=== PATIENT | male | born 1980 | race African-American/Black ===

== ENCOUNTER 2018-07-21 09:09 | Emergency (ER) | payer MEDICAID ==
[~2018-07-21] VITALS: Ht 188 cm; Wt 79.0 kg
[~2018-07-21 09:09] MED LIST: ACET-2178
[2018-07-21 09:21] VITALS: BP 102/74
== END 2018-07-21 11:20 | disposition left against medical advice (07) ==
LOC: ER 09:09
DX: Z48.02 Encounter for removal of sutures (principal); F17.200 Nicotine dependence, unspecified, uncomplicated
CPT/HCPCS: 99281; Z7610

== ENCOUNTER 2018-10-28 11:35 | Inpatient (IN) | payer MEDICAID ==
[~2018-10-28] VITALS: Ht 188 cm; Wt 96.0 kg
[2018-10-28] MEDS ORDERED: MORPHINE SULFATE 4 MG/ML CPJ (NOT FOR IM USE) IV STA (12:05)
[2018-10-28 12:30] LABS: BASOPHILS % 0.3 % (0.0-2.0); EOSINOPHILS % 0.1 % (0.0-5.0); HEMATOCRIT. 45.3 % (42.0-52.0); HEMOGLOBIN. 15.1 g/dL (14.0-18.0); LYMPHOCYTES % 17.1 % (20.0-50.0); MEAN CORPUSCULAR HEMOGLOBIN 34.4 pg (28.0-32.0); MEAN CORPUSCULAR VOLUME 102.9 fL (80.0-94.0); MEAN PLATELET VOLUME 11.5 fl (7.4-10.4); MONOCYTES % 8.6 % (2.0-8.0); NEUTROPHILS % 73.9 % (40.0-76.0); PLATELET 182 x1000/uL (130-400); RED CELL DISTRIBUTION WIDTH 13.6 % (11.6-14.6)
[2018-10-28 12:34] LABS: CHLORIDE 108 mEq/L (98-107)
[2018-10-28] MEDS ORDERED: ENOXAPARIN 80MG/0.8ML SYR SUBCUT ONE (13:00)
[2018-10-28] MEDS ORDERED: ASPIRIN 325MG EC TABLET PO ONE (13:00)
[2018-10-28] MEDS ORDERED: HYDRALAZINE 20MG/ML VIAL IV ONE (13:00)
[2018-10-28] MEDS ORDERED: ENOXAPARIN 80MG/0.8ML SYR SUBCUT SCH (13:00)
[2018-10-28] MEDS ORDERED: HYDRALAZINE 20MG/ML VIAL IV PRN ×2 (14:15→16:15)
[2018-10-28] MEDS ORDERED: CLONIDINE 0.1MG TABLET PO PRN (14:15)
[2018-10-28 15:16] LABS: INR 1.2; PROTHROMBIN TIME 11.7 sec (9.1-11.1)
[2018-10-28] MEDS ORDERED: SODIUM CHLORIDE 0.9% 1,000 ML IV SCH (15:31)
[2018-10-28 15:41] LABS: *AMPHETAMINES SCREEN URINE NEGATIVE (NEGATIVE); *BARBITURATES SCREEN URINE NEGATIVE (NEGATIVE); *BENZODIAZEPINES SCREEN URINE NEGATIVE (NEGATIVE); *COCAINE SCREEN URINE NEGATIVE (NEGATIVE); METHADONE URINE SCREEN NEGATIVE (NEGATIVE)
[2018-10-28 15:42] LABS: CANNABINOID URINE SCREEN PRESUMTIVE POSITIVE (NEGATIVE); OPIATES URINE SCREEN PRESUMTIVE POSITIVE (NEGATIVE); PHENCYCLIDINE URINE SCREEN NEGATIVE (NEGATIVE)
[2018-10-28 15:43] VITALS: BP 160/126
[2018-10-28 15:44] VITALS: BP 160/126
[2018-10-28] MEDS ORDERED: ONDANSETRON HCL 4MG/2ML INJ IV PRN (15:45)
[2018-10-28] MEDS ORDERED: IPRATROPIUM/ALBUTEROL 0.5-3(2.5)MG/3ML NEB INH PRN (15:45)
[2018-10-28] MEDS ORDERED: MAGNESIUM/ALUMINUM HYDROXIDE/SIMETHICONE 30ML UDC PO PRN (15:45)
[2018-10-28] MEDS ORDERED: HYDROCODONE/ACETAMINOPHEN 5/325MG TABLET PO PRN (15:45)
[2018-10-28 17:02] LABS: VITAMIN B12 SERUM 1410 pg/mL (211-911)
[2018-10-28 17:04] LABS: HEPATITIS B SURFACE ANTIGEN NEGATIVE
[2018-10-28] MEDS ORDERED: MORPHINE SULFATE 2 MG/ML CPJ (NOT FOR IM USE) IV PRN (17:30)
[2018-10-28] MEDS ORDERED: CLONIDINE 0.1MG TABLET PO NR (17:30)
[2018-10-28] MEDS ORDERED: MORPHINE SULFATE 4 MG/ML CPJ (NOT FOR IM USE) IV NR (17:30)
[2018-10-28 17:34] LABS: HEPATITIS A AB IGM NEGATIVE (NEGATIVE)
[2018-10-28] MEDS: AMLODIPINE 5MG TABLET PO SCH (17:49)
[2018-10-28] MEDS: NITROGLYCERIN OINT 1GM/INCH UDPKT TD SCH (17:50)
[2018-10-28 18:00] VITALS: BP 164/133
[2018-10-28] MEDS ORDERED: HYDROMORPHONE HCL/PF 2MG/ML CPJ IV PRN (18:00)
[2018-10-28 20:00] VITALS: BP 156/123
[2018-10-28 22:00] VITALS: BP 156/96
[2018-10-28] MEDS ORDERED: LORAZEPAM 0.5MG TABLET PO NR (22:00)
[2018-10-29] VITALS (17 sets, daily range): BP systolic 130–161; BP diastolic 76–122
[2018-10-29] MEDS: NITROGLYCERIN OINT 1GM/INCH UDPKT TD SCH ×5 (01:25→18:07)
[2018-10-29] MEDS: ACETAMINOPHEN 325MG TABLET PO PRN (01:25)
[2018-10-29 07:47] LABS: BASOPHILS % 0.5 % (0.0-2.0); EOSINOPHILS % 0.3 % (0.0-5.0); HEMATOCRIT. 39.9 % (42.0-52.0); HEMOGLOBIN. 13.1 g/dL (14.0-18.0); MEAN CORPUSCULAR HEMOGLOBIN 33.7 pg (28.0-32.0); MEAN CORPUSCULAR VOLUME 102.9 fL (80.0-94.0); MONOCYTES % 12.1 % (2.0-8.0); NEUTROPHILS % 60.1 % (40.0-76.0); PLATELET 158 x1000/uL (130-400); RED BLOOD CELL COUNT 3.88 mill/uL (4.7-6.1); RED CELL DISTRIBUTION WIDTH 13.8 % (11.6-14.6)
[2018-10-29 07:49] LABS: CHLORIDE 107 mEq/L (98-107)
[2018-10-29 08:06] LABS: LDL CHOLESTEROL 82 mg/dL (5-100)
[2018-10-29 08:08] LABS: CREATINE KINASE 672 IU/L (39-308); CREATINE KINASE MB FRACTION 71.5 ng/mL (0.5-3.6); HDL CHOLESTEROL 24 mg/dL (40-59)
[2018-10-29] MEDS: THIAMINE HCL 100MG TABLET PO SCH (09:00)
[2018-10-29] MEDS: ASPIRIN 325MG EC TABLET PO SCH (09:00)
[2018-10-29] MEDS: FOLIC ACID 1MG TABLET PO SCH (09:00)
[2018-10-29] MEDS: AMLODIPINE 5MG TABLET PO SCH ×2 (09:00→16:52)
[2018-10-29] MEDS: MULTIVITAMINS,THER W-MINERALS TABLET PO SCH (09:00)
[2018-10-29] MEDS ORDERED: IOHEXOL-300 100 ML BOTTLE ONE (10:52)
[2018-10-29] MEDS ORDERED: LIDOCAINE HCL 1% 20ML VIAL (Pyxis) INJ ONE (10:53)
[2018-10-29] MEDS ORDERED: MIDAZOLAM HCL 2 MG/2 ML VIAL ONE (11:06)
[2018-10-29] MEDS ORDERED: FENTANYL CITRATE/PF 50MCG/ML 2ML VIAL ONE (11:06)
[2018-10-29] MEDS ORDERED: METOPROLOL TARTRATE 5MG/5ML VIAL IV ONE (11:20)
[2018-10-29] MEDS ORDERED: ACETAMINOPHEN 325MG TABLET PO PRN (11:45)
[2018-10-29] MEDS ORDERED: ATROPINE SULFATE 1MG/10ML SYR IV PRN (11:45)
[2018-10-29] MEDS: CLOPIDOGREL 75MG TABLET PO SCH (13:23)
[2018-10-29] MEDS: POTASSIUM CHLORIDE 20MEQ TABLET SR PO SCH (13:23)
[2018-10-29] MEDS: FUROSEMIDE 40MG/4ML VIAL IVP SCH (16:51)
[2018-10-29] MEDS: CARVEDILOL 12.5MG TABLET PO SCH (20:24)
[2018-10-29] MEDS: LISINOPRIL 20MG TABLET PO SCH (20:24)
[2018-10-29] MEDS: CLONIDINE 0.1MG TABLET PO PRN (20:29)
[2018-10-30] VITALS (8 sets, daily range): BP systolic 119–148; BP diastolic 79–109
[2018-10-30] MEDS: CLONIDINE 0.1MG TABLET PO PRN (05:25)
[2018-10-30] MEDS: NITROGLYCERIN OINT 1GM/INCH UDPKT TD SCH ×4 (05:29→12:12)
[2018-10-30] MEDS: ACETAMINOPHEN 325MG TABLET PO PRN (05:53)
[2018-10-30 07:26] LABS: CHLORIDE 108 mEq/L (98-107)
[2018-10-30 07:31] LABS: BASOPHILS % 0.4 % (0.0-2.0); EOSINOPHILS % 0.2 % (0.0-5.0); HEMATOCRIT. 39.6 % (42.0-52.0); HEMOGLOBIN. 13.5 g/dL (14.0-18.0); LYMPHOCYTES % 25.3 % (20.0-50.0); MEAN CORPUSCULAR HEMOGLOBIN 34.8 pg (28.0-32.0); MEAN CORPUSCULAR VOLUME 102.2 fL (80.0-94.0); MEAN PLATELET VOLUME 12.1 fl (7.4-10.4); MONOCYTES % 10.8 % (2.0-8.0); NEUTROPHILS % 63.3 % (40.0-76.0); PLATELET 154 x1000/uL (130-400); RED BLOOD CELL COUNT 3.88 mill/uL (4.7-6.1)
[2018-10-30] MEDS: THIAMINE HCL 100MG TABLET PO SCH (10:41)
[2018-10-30] MEDS: CARVEDILOL 12.5MG TABLET PO SCH ×3 (10:42→21:24)
[2018-10-30] MEDS: AMLODIPINE 5MG TABLET PO SCH ×2 (10:43→16:47)
[2018-10-30] MEDS: POTASSIUM CHLORIDE 20MEQ TABLET SR PO SCH (10:43)
[2018-10-30] MEDS: LISINOPRIL 20MG TABLET PO SCH ×2 (10:43→21:23)
[2018-10-30] MEDS: MULTIVITAMINS,THER W-MINERALS TABLET PO SCH (10:44)
[2018-10-30] MEDS: ASPIRIN 325MG EC TABLET PO SCH (10:44)
[2018-10-30] MEDS: FOLIC ACID 1MG TABLET PO SCH (10:44)
[2018-10-30] MEDS: CLOPIDOGREL 75MG TABLET PO SCH (10:45)
[2018-10-30] MEDS: FUROSEMIDE 40MG/4ML VIAL IVP SCH (10:47)
[2018-10-30] MEDS: SPIRONOLACTONE 25MG TABLET PO SCH (13:17)
[2018-10-30] MEDS ORDERED: CARVEDILOL 12.5MG TABLET PO SCH (15:30)
[2018-10-30] MEDS: ISOSORB DINIT/HYDRALAZINE HCL 20/37.5MG TABLET PO SCH ×2 (15:52→21:24)
[2018-10-31] VITALS (9 sets, daily range): BP systolic 96–167; BP diastolic 65–99
[2018-10-31] MEDS: NITROGLYCERIN OINT 1GM/INCH UDPKT TD SCH ×2 (04:25→06:00)
[2018-10-31] MEDS: CARVEDILOL 12.5MG TABLET PO SCH (06:37)
[2018-10-31] MEDS: ISOSORB DINIT/HYDRALAZINE HCL 20/37.5MG TABLET PO SCH ×2 (06:37→14:54)
[2018-10-31 07:35] LABS: BASOPHILS % 0.6 % (0.0-2.0); EOSINOPHILS % 0.7 % (0.0-5.0); HEMATOCRIT. 39.9 % (42.0-52.0); HEMOGLOBIN. 13.5 g/dL (14.0-18.0); LYMPHOCYTES % 23.8 % (20.0-50.0); MEAN CORPUSCULAR HEMOGLOBIN 34.8 pg (28.0-32.0); MEAN CORPUSCULAR VOLUME 102.8 fL (80.0-94.0); MEAN PLATELET VOLUME 12.3 fl (7.4-10.4); MONOCYTES % 9.7 % (2.0-8.0); NEUTROPHILS % 65.2 % (40.0-76.0); PLATELET 148 x1000/uL (130-400); RED BLOOD CELL COUNT 3.89 mill/uL (4.7-6.1); RED CELL DISTRIBUTION WIDTH 13.9 % (11.6-14.6)
[2018-10-31 07:50] LABS: CHLORIDE 109 mEq/L (98-107)
[2018-10-31] MEDS: AMLODIPINE 5MG TABLET PO SCH (08:13)
[2018-10-31] MEDS: FOLIC ACID 1MG TABLET PO SCH (08:14)
[2018-10-31] MEDS: CLOPIDOGREL 75MG TABLET PO SCH (08:14)
[2018-10-31] MEDS: ASPIRIN 325MG EC TABLET PO SCH (08:14)
[2018-10-31] MEDS: LISINOPRIL 20MG TABLET PO SCH (08:14)
[2018-10-31] MEDS: SPIRONOLACTONE 25MG TABLET PO SCH (08:14)
[2018-10-31] MEDS ORDERED: POTASSIUM CHLORIDE 20MEQ TABLET SR PO SCH ×2 (09:00→12:30)
[2018-10-31] MEDS ORDERED: FUROSEMIDE 40MG TABLET PO SCH (09:00)
[2018-10-31] MEDS: MULTIVITAMINS,THER W-MINERALS TABLET PO SCH (09:00)
[2018-10-31] MEDS: ACETAMINOPHEN 325MG TABLET PO PRN (09:41)
[2018-10-31] MEDS: THIAMINE HCL 100MG TABLET PO SCH (09:54)
[2018-10-31] MEDS ORDERED: CARVEDILOL 25MG TABLET PO SCH (21:00)
== END 2018-10-31 16:31 | disposition home or self-care (01) | DRG 190 ==
LOC: ER 11:46 → 3WST 13:38 → EDBEDREQ 13:40 → ENRESERV 13:45
PROVIDERS: ADMIT Internal Medicine; ATTEND Internal Medicine
PROC: 4A023N7 Measurement of Cardiac Sampling and Pressure, Left Heart, Percutaneous Approach (ICD-10-PCS; principal; 2018-10-29)
PROC: B2111ZZ Fluoroscopy of Multiple Coronary Arteries using Low Osmolar Contrast (ICD-10-PCS; 2018-10-29)
PROC: B2151ZZ Fluoroscopy of Left Heart using Low Osmolar Contrast (ICD-10-PCS; 2018-10-29)
DX: I21.09 ST elevation (STEMI) myocardial infarction involving other coronary artery of anterior wall (principal); N17.0 Acute kidney failure with tubular necrosis; I13.0 Hypertensive heart and chronic kidney disease with heart failure and stage 1 through stage 4 chronic kidney disease, or unspecified chronic kidney disease; I50.9 Heart failure, unspecified; I42.9 Cardiomyopathy, unspecified; E44.1 Mild protein-calorie malnutrition; F12.90 Cannabis use, unspecified, uncomplicated; F17.210 Nicotine dependence, cigarettes, uncomplicated; R73.9 Hyperglycemia, unspecified; I16.0 Hypertensive urgency; I34.0 Nonrheumatic mitral (valve) insufficiency; N18.9 Chronic kidney disease, unspecified; Z91.14 Patient's other noncompliance with medication regimen; Z91.19 Patient's noncompliance with other medical treatment and regimen; I25.2 Old myocardial infarction
CPT/HCPCS: 36415; 71045; 76700; 78582; 80048; 80061; 80076; 80305; 82550; 82553; 82607; 83036; 83735; 83880; 84443; 84484; 85379; 86705; 86709; 86803; 87340; 93005; 93306; 93458; 93970; 99285; A9558; C1760; C1769; C1887; C1893; J0360; J1644; J1650; J1940; J2250; J2270; J3010; J3490; Q9967

== ENCOUNTER 2019-02-02 20:13 | Emergency (ER) | payer OTHER, MEDICAID ==
[~2019-02-02] VITALS: Ht 177.8 cm; Wt 77.0 kg
[2019-02-02] MEDS ORDERED: LORAZEPAM 2MG/ML CPJ IV STA (20:48)
[2019-02-02 21:25] LABS: BASOPHILS % 0.6 % (0.0-2.0); EOSINOPHILS % 0.2 % (0.0-5.0); HEMATOCRIT. 46.5 % (42.0-52.0); HEMOGLOBIN. 15.9 g/dL (14.0-18.0); LYMPHOCYTES % 37.1 % (20.0-50.0); MEAN CORPUSCULAR HEMOGLOBIN 33.3 pg (28.0-32.0); MEAN CORPUSCULAR VOLUME 97.5 fL (80.0-94.0); MEAN PLATELET VOLUME 9.1 fl (7.4-10.4); MONOCYTES % 8.7 % (2.0-8.0); NEUTROPHILS % 53.4 % (40.0-76.0); PLATELET 226 x1000/uL (130-400); RED BLOOD CELL COUNT 4.77 mill/uL (4.7-6.1); RED CELL DISTRIBUTION WIDTH 12.9 % (11.6-14.6)
[2019-02-02 21:30] LABS: CHLORIDE 107 mEq/L (98-107)
[2019-02-02 21:34] LABS: ETHANOL BLOOD 296 mg/dL
[2019-02-03 04:09] VITALS: BP 123/80
== END 2019-02-03 04:45 | disposition home or self-care (01) ==
LOC: ER 20:13
DX: F10.129 Alcohol abuse with intoxication, unspecified (principal)
CPT/HCPCS: 36415; 80053; 80320; 85025; 96374; 99283; J2060; Z7610; G0480

== ENCOUNTER 2019-09-16 10:05 | Inpatient (IN) | payer MEDICAID, OTHER ==
[~2019-09-16] VITALS: Ht 188 cm; Wt 98.0 kg
[~2019-09-16 10:05] MED LIST changes: -ACET-2178; +TOPUD
[2019-09-16 11:34] LABS: BASOPHILS % 0.8 % (0.0-2.0); EOSINOPHILS % 0.1 % (0.0-5.0); HEMATOCRIT. 44.8 % (42.0-52.0); HEMOGLOBIN. 15.1 g/dL (14.0-18.0); LYMPHOCYTES % 26.2 % (20.0-50.0); MEAN CORPUSCULAR HEMOGLOBIN 34.3 pg (28.0-32.0); MEAN CORPUSCULAR VOLUME 101.8 fL (80.0-94.0); MONOCYTES % 8.2 % (2.0-8.0); NEUTROPHILS % 64.7 % (40.0-76.0); PLATELET 175 x1000/uL (130-400); RED CELL DISTRIBUTION WIDTH 13.9 % (11.6-14.6)
[2019-09-16 11:40] LABS: CHLORIDE 111 mEq/L (98-107)
[2019-09-16 11:43] LABS: INR 1.2
[2019-09-16 11:44] LABS: ETHANOL BLOOD < 10 mg/dL
[2019-09-16 12:30] LABS: CLARITY URINE CLOUDY (CLEAR); COLOR URINE AMBER (YELLOW); KETONES URINE 1+ (NEGATIVE); LEUKOCYTE ESTERASE URINE NEGATIVE (NEGATIVE); NITRITE URINE NEGATIVE (NEGATIVE); OCCULT BLOOD URINE NEGATIVE (NEGATIVE); PROTEIN URINE 2+ (NEGATIVE); SPECIFIC GRAVITY URINE 1.028 (1.005-1.030)
[2019-09-16] MEDS ORDERED: MORPHINE SULFATE 4 MG/ML CPJ (NOT FOR IM USE) IV STA (12:35)
[2019-09-16] MEDS ORDERED: ONDANSETRON HCL 4MG/2ML INJ IV STA (12:35)
[2019-09-16] MEDS ORDERED: FAMOTIDINE 20MG/2ML VIAL IV STA (12:35)
[2019-09-16 12:45] LABS: *COCAINE SCREEN URINE NEGATIVE (NEGATIVE); METHADONE URINE SCREEN NEGATIVE (NEGATIVE); OPIATES URINE SCREEN NEGATIVE (NEGATIVE)
[2019-09-16] MEDS ORDERED: FUROSEMIDE 20MG/2ML VIAL IVP ONE (12:45)
[2019-09-16] MEDS ORDERED: ENALAPRIL 2.5MG/2ML VIAL 2ML IV ONE (12:45)
[2019-09-16 12:47] LABS: *AMPHETAMINES SCREEN URINE NEGATIVE (NEGATIVE); *BARBITURATES SCREEN URINE NEGATIVE (NEGATIVE); *BENZODIAZEPINES SCREEN URINE NEGATIVE (NEGATIVE); CANNABINOID URINE SCREEN PRESUMTIVE POSITIVE (NEGATIVE); PHENCYCLIDINE URINE SCREEN NEGATIVE (NEGATIVE)
[2019-09-16] MEDS ORDERED: ENALAPRIL 2.5MG/2ML VIAL 2ML IV SCH (13:15)
[2019-09-16] MEDS ORDERED: ACETAMINOPHEN 325MG TABLET PO PRN (14:00)
[2019-09-16] MEDS ORDERED: ONDANSETRON HCL 4MG/2ML INJ IV PRN (14:00)
[2019-09-16] MEDS: CARVEDILOL 6.25 MG TABLET PO SCH ×2 (14:30→20:39)
[2019-09-16] MEDS: LOSARTAN POTASSIUM 100 MG TABLET PO SCH (14:30)
[2019-09-16] MEDS: FUROSEMIDE 40MG/4ML VIAL IVP SCH (14:32)
[2019-09-16] MEDS ORDERED: CLONIDINE 0.1MG TABLET PO PRN (14:45)
[2019-09-16 15:29] VITALS: BP 162/89
[2019-09-16 16:00] VITALS: BP 162/88
[2019-09-16 18:00] VITALS: BP 152/87
[2019-09-16 20:18] VITALS: BP 139/100
[2019-09-16] MEDS: ENOXAPARIN 40MG/0.4ML SYR SUBCUT SCH (20:38)
[2019-09-16] MEDS: FAMOTIDINE 20MG TABLET PO SCH (20:39)
[2019-09-16] MEDS: AMLODIPINE 5MG TABLET PO SCH (20:39)
[2019-09-16 22:15] VITALS: BP 132/98
[2019-09-17] VITALS (11 sets, daily range): BP systolic 113–143; BP diastolic 56–96
[2019-09-17] MEDS: FUROSEMIDE 40MG/4ML VIAL IVP SCH (06:28)
[2019-09-17 06:52] LABS: BASOPHILS % 0.7 % (0.0-2.0); HEMATOCRIT. 43.1 % (42.0-52.0); HEMOGLOBIN. 14.5 g/dL (14.0-18.0); LYMPHOCYTES % 32.9 % (20.0-50.0); MEAN CORPUSCULAR HEMOGLOBIN 34.2 pg (28.0-32.0); MEAN CORPUSCULAR VOLUME 101.4 fL (80.0-94.0); MEAN PLATELET VOLUME 11.7 fl (7.4-10.4); MONOCYTES % 9.9 % (2.0-8.0); NEUTROPHILS % 55.5 % (40.0-76.0); PLATELET 164 x1000/uL (130-400); RED BLOOD CELL COUNT 4.25 mill/uL (4.7-6.1); RED CELL DISTRIBUTION WIDTH 13.6 % (11.6-14.6)
[2019-09-17 06:54] LABS: CHLORIDE 107 mEq/L (98-107)
[2019-09-17] MEDS: AMLODIPINE 5MG TABLET PO SCH (10:44)
[2019-09-17] MEDS: FAMOTIDINE 20MG TABLET PO SCH ×2 (10:44→20:06)
[2019-09-17] MEDS: CARVEDILOL 6.25 MG TABLET PO SCH (10:45)
[2019-09-17] MEDS: LOSARTAN POTASSIUM 100 MG TABLET PO SCH (10:45)
[2019-09-17] MEDS ORDERED: SPIRONOLACTONE 25MG TABLET PO SCH (11:45)
[2019-09-17] MEDS: ENOXAPARIN 40MG/0.4ML SYR SUBCUT SCH (19:56)
[2019-09-17] MEDS ORDERED: CARVEDILOL 12.5MG TABLET PO SCH (21:00)
[2019-09-18] MEDS ORDERED: FUROSEMIDE 40MG/4ML VIAL IVP SCH (08:00)
== END 2019-09-17 08:45 | disposition left against medical advice (07) | DRG 241 ==
LOC: ER 10:05 → 3WST 13:10 → EDBEDREQ 13:16 → ENRESERV 13:47
PROVIDERS: ADMIT Internal Medicine; ATTEND Internal Medicine
DX: K29.70 Gastritis, unspecified, without bleeding (principal); I50.23 Acute on chronic systolic (congestive) heart failure; E87.8 Other disorders of electrolyte and fluid balance, not elsewhere classified; I42.9 Cardiomyopathy, unspecified; F17.210 Nicotine dependence, cigarettes, uncomplicated; F12.90 Cannabis use, unspecified, uncomplicated; I11.0 Hypertensive heart disease with heart failure; J44.9 Chronic obstructive pulmonary disease, unspecified; K21.9 Gastro-esophageal reflux disease without esophagitis; F10.10 Alcohol abuse, uncomplicated; Z60.2 Problems related to living alone; F19.10 Other psychoactive substance abuse, uncomplicated; K27.9 Peptic ulcer, site unspecified, unspecified as acute or chronic, without hemorrhage or perforation; K52.9 Noninfective gastroenteritis and colitis, unspecified; I25.2 Old myocardial infarction; Z91.14 Patient's other noncompliance with medication regimen; Z79.899 Other long term (current) drug therapy; Z71.6 Tobacco abuse counseling; Z71.41 Alcohol abuse counseling and surveillance of alcoholic; Z53.21 Procedure and treatment not carried out due to patient leaving prior to being seen by health care provider
CPT/HCPCS: 36415; 71045; 76700; 78227; 80048; 80305; 80320; 81003; 83880; 84484; 93005; 93306; 96374; 99291; A9537; J1650; J1940; J2270; J2405; J3490; G0480

== ENCOUNTER 2019-09-19 08:10 | Emergency (ER) | payer MEDICAID ==
[~2019-09-19] VITALS: Ht 188 cm; Wt 100.0 kg
[2019-09-19 08:18] VITALS: BP 165/113
== END 2019-09-19 09:12 | disposition home or self-care (01) ==
LOC: ER 08:10
DX: Z76.0 Encounter for issue of repeat prescription (principal); I11.0 Hypertensive heart disease with heart failure; I50.9 Heart failure, unspecified; I25.2 Old myocardial infarction
CPT/HCPCS: 99283

== ENCOUNTER 2019-10-14 09:12 | Emergency (ER) | payer MEDICAID ==
[~2019-10-14] VITALS: Ht 188 cm; Wt 91.0 kg
[2019-10-14 10:39] LABS: CHLORIDE 110 mEq/L (98-107)
[2019-10-14 10:50] LABS: BASOPHILS % 1.1 % (0.0-2.0); EOSINOPHILS % 1.1 % (0.0-5.0); HEMATOCRIT. 44.3 % (42.0-52.0); HEMOGLOBIN. 14.9 g/dL (14.0-18.0); LYMPHOCYTES % 29.9 % (20.0-50.0); MEAN CORPUSCULAR HEMOGLOBIN 33.6 pg (28.0-32.0); MEAN CORPUSCULAR VOLUME 99.7 fL (80.0-94.0); MEAN PLATELET VOLUME 11.3 fl (7.4-10.4); MONOCYTES % 10.3 % (2.0-8.0); NEUTROPHILS % 57.6 % (40.0-76.0); RED BLOOD CELL COUNT 4.44 mill/uL (4.7-6.1); RED CELL DISTRIBUTION WIDTH 13.1 % (11.6-14.6)
[2019-10-14 10:53] LABS: PLATELET 144 x1000/uL (130-400)
[2019-10-14] MEDS ORDERED: FUROSEMIDE 40MG/4ML VIAL IVP ONE (11:00)
[2019-10-14] MEDS ORDERED: CARVEDILOL 12.5MG TABLET PO ONE (11:15)
[2019-10-14 11:48] VITALS: BP 153/109
== END 2019-10-14 11:51 | disposition home or self-care (01) ==
LOC: ER 09:12
DX: I11.0 Hypertensive heart disease with heart failure (principal); I50.9 Heart failure, unspecified; I25.2 Old myocardial infarction
CPT/HCPCS: 36415; 71045; 80053; 83880; 84484; 85025; 93005; 96374; 99284; J1940

== ENCOUNTER 2020-08-21 00:44 | Emergency (ER) | payer MEDICAID ==
[~2020-08-21] VITALS: Ht 188 cm; Wt 127.0 kg
[2020-08-21 01:50] LABS: CLARITY URINE CLEAR (CLEAR); COLOR URINE DARK YELLOW (YELLOW); KETONES URINE NEGATIVE (NEGATIVE); LEUKOCYTE ESTERASE URINE NEGATIVE (NEGATIVE); NITRITE URINE NEGATIVE (NEGATIVE); OCCULT BLOOD URINE NEGATIVE (NEGATIVE); PROTEIN URINE 1+ (NEGATIVE)
[2020-08-21 02:15] LABS: BASOPHILS % 1.3 % (0.0-2.0); EOSINOPHILS % 0.5 % (0.0-5.0); HEMATOCRIT. 42.2 % (42.0-52.0); HEMOGLOBIN. 13.6 g/dL (14.0-18.0); LYMPHOCYTES % 27.8 % (20.0-50.0); MEAN CORPUSCULAR HEMOGLOBIN 32.6 pg (28.0-32.0); MEAN CORPUSCULAR VOLUME 101.1 fL (80.0-94.0); MEAN PLATELET VOLUME 10.1 fl (7.4-10.4); MONOCYTES % 8.2 % (2.0-8.0); NEUTROPHILS % 62.2 % (40.0-76.0); PLATELET 183 x1000/uL (130-400); RED BLOOD CELL COUNT 4.17 mill/uL (4.7-6.1); RED CELL DISTRIBUTION WIDTH 15.6 % (11.6-14.6)
[2020-08-21 02:22] LABS: CHLORIDE 108 mEq/L (98-107)
[2020-08-21] MEDS ORDERED: KETOROLAC 30MG/ML VIAL IV STA (03:02)
[2020-08-21] MEDS ORDERED: FAMOTIDINE 20MG/2ML VIAL IV STA (03:02)
[2020-08-21 04:32] VITALS: BP 114/79
== END 2020-08-21 04:34 | disposition home or self-care (01) ==
LOC: ER 00:44
DX: R10.13 Epigastric pain (principal); I10 Essential (primary) hypertension; I25.2 Old myocardial infarction; K21.9 Gastro-esophageal reflux disease without esophagitis
CPT/HCPCS: 36415; 71045; 76705; 80053; 81003; 85025; 93005; 99285

== ENCOUNTER 2020-09-10 09:42 | Emergency (ER) | payer MEDICAID, OTHER ==
[~2020-09-10] VITALS: Ht 188 cm; Wt 91.0 kg
[2020-09-10] MEDS ORDERED: FAMOTIDINE 20MG/2ML VIAL IV STA (10:08)
[2020-09-10] MEDS ORDERED: VISCOUS LIDOCAINE 2% 15 ML UDC PO STA (10:08)
[2020-09-10] MEDS ORDERED: ONDANSETRON HCL 4MG/2ML INJ IV STA (10:08)
[2020-09-10] MEDS ORDERED: DICYCLOMINE 10 MG/5 ML ORAL SYR PO STA (10:08)
[2020-09-10] MEDS ORDERED: MAGNESIUM/ALUMINUM HYDROXIDE/SIMETHICONE 30ML UDC PO STA (10:08)
[2020-09-10 10:34] LABS: BASOPHILS % 0.8 % (0.0-2.0); EOSINOPHILS % 0.5 % (0.0-5.0); HEMOGLOBIN. 13.7 g/dL (14.0-18.0); LYMPHOCYTES % 21.4 % (20.0-50.0); MEAN CORPUSCULAR VOLUME 97.9 fL (80.0-94.0); MEAN PLATELET VOLUME 9.8 fl (7.4-10.4); MONOCYTES % 6.6 % (2.0-8.0); NEUTROPHILS % 70.7 % (40.0-76.0); PLATELET 178 x1000/uL (130-400); RED BLOOD CELL COUNT 4.28 mill/uL (4.7-6.1); RED CELL DISTRIBUTION WIDTH 15.6 % (11.6-14.6)
[2020-09-10 10:42] LABS: CHLORIDE 107 mEq/L (98-107)
[2020-09-10 10:45] LABS: ETHANOL BLOOD < 10 mg/dL; INR 1.4; PROTHROMBIN TIME 14.1 sec (9.6-11.0)
[2020-09-10 12:00] VITALS: BP 133/99
[2020-09-13] MEDS ORDERED: HYDR-4134 PO (01:06)
[2020-09-13] MEDS ORDERED: AMLO5TAB88 PO (01:06)
[2020-09-13] MEDS ORDERED: OMEP20TA2 PO (01:06)
[2020-09-13] MEDS ORDERED: ISOS20TA57 PO (01:06)
== END 2020-09-10 12:58 | disposition home or self-care (01) ==
LOC: ER 09:42
DX: R10.13 Epigastric pain (principal); K21.9 Gastro-esophageal reflux disease without esophagitis; I10 Essential (primary) hypertension; I25.2 Old myocardial infarction; I25.10 Atherosclerotic heart disease of native coronary artery without angina pectoris; F17.210 Nicotine dependence, cigarettes, uncomplicated
CPT/HCPCS: 36415; 80053; 80320; 83690; 84484; 85025; 85610; 93005; 96374; 96375; 99284; J2405; J3490; G0480

== ENCOUNTER 2020-10-03 23:53 | Inpatient (IN) | payer OTHER ==
[~2020-10-03] VITALS: Ht 182.9 cm; Wt 111.1 kg
[~2020-10-03 23:53] MED LIST changes: +AMLO5TAB88 PO; +HYDR-4134 PO; +ISOS20TA57 PO; +OMEP20TA2 PO
[2020-10-04] MEDS ORDERED: FUROSEMIDE 20MG/2ML VIAL IVP ONE (00:15)
[2020-10-04 00:34] LABS: BASOPHILS % 0.8 % (0.0-2.0); HEMOGLOBIN. 11.9 g/dL (14.0-18.0); MEAN CORPUSCULAR HEMOGLOBIN 32.3 pg (28.0-32.0); MEAN PLATELET VOLUME 9.8 fl (7.4-10.4); MONOCYTES % 10.5 % (2.0-8.0); NEUTROPHILS % 61.7 % (40.0-76.0); PLATELET 172 x1000/uL (130-400); RED BLOOD CELL COUNT 3.68 mill/uL (4.7-6.1); RED CELL DISTRIBUTION WIDTH 16.9 % (11.6-14.6)
[2020-10-04 00:42] LABS: CHLORIDE 110 mEq/L (98-107)
[2020-10-04 10:00] VITALS: BP 151/115
[2020-10-04] MEDS ORDERED: POTA8CAP20 MT (10:29)
[2020-10-04] MEDS ORDERED: FURO-152 MT (10:29)
[2020-10-04] MEDS ORDERED: ONDANSETRON HCL 4MG/2ML INJ IV PRN (10:30)
[2020-10-04] MEDS ORDERED: ACETAMINOPHEN 325MG TABLET PO PRN (10:30)
[2020-10-04] MEDS: LOSARTAN POTASSIUM 50 MG TABLET PO SCH (11:00)
[2020-10-04] MEDS: CARVEDILOL 12.5MG TABLET PO SCH ×2 (11:01→20:39)
[2020-10-04 12:00] VITALS: BP 123/93
[2020-10-04] MEDS ORDERED: ENOXAPARIN 40MG/0.4ML SYR SUBCUT SCH (15:00)
[2020-10-04 16:00] VITALS: BP 131/74
[2020-10-04] MEDS: FUROSEMIDE 40MG/4ML VIAL IVP SCH (16:50)
[2020-10-04] MEDS ORDERED: FUROSEMIDE 40MG/4ML VIAL IVP SCH (17:00)
[2020-10-04 19:30] LABS: CLARITY URINE CLEAR (CLEAR); COLOR URINE YELLOW (YELLOW); KETONES URINE NEGATIVE (NEGATIVE); LEUKOCYTE ESTERASE URINE NEGATIVE (NEGATIVE); NITRITE URINE NEGATIVE (NEGATIVE); OCCULT BLOOD URINE NEGATIVE (NEGATIVE); PROTEIN URINE 1+ (NEGATIVE); SPECIFIC GRAVITY URINE 1.008 (1.005-1.030)
[2020-10-04 19:43] LABS: *AMPHETAMINES SCREEN URINE NEGATIVE (NEGATIVE); *BARBITURATES SCREEN URINE NEGATIVE (NEGATIVE); *BENZODIAZEPINES SCREEN URINE NEGATIVE (NEGATIVE); *COCAINE SCREEN URINE NEGATIVE (NEGATIVE); METHADONE URINE SCREEN NEGATIVE (NEGATIVE); OPIATES URINE SCREEN NEGATIVE (NEGATIVE); PHENCYCLIDINE URINE SCREEN NEGATIVE (NEGATIVE)
[2020-10-04 19:44] LABS: CANNABINOID URINE SCREEN NEGATIVE (NEGATIVE)
[2020-10-04 20:00] VITALS: BP 136/99
[2020-10-05] VITALS: BP 110/68
[2020-10-05 04:00] VITALS: BP 103/67
[2020-10-05 08:00] VITALS: BP 127/90
[2020-10-05] MEDS ORDERED: METOLAZONE 2.5MG TABLET PO SCH (08:00)
[2020-10-05] MEDS: LOSARTAN POTASSIUM 50 MG TABLET PO SCH (08:49)
[2020-10-05] MEDS: CARVEDILOL 12.5MG TABLET PO SCH (08:49)
[2020-10-05] MEDS: FUROSEMIDE 40MG/4ML VIAL IVP SCH (08:49)
[2020-10-05 09:51] LABS: BASOPHILS % 0.8 % (0.0-2.0); EOSINOPHILS % 0.8 % (0.0-5.0); HEMATOCRIT. 37.5 % (42.0-52.0); HEMOGLOBIN. 12.1 g/dL (14.0-18.0); LYMPHOCYTES % 26.5 % (20.0-50.0); MEAN CORPUSCULAR HEMOGLOBIN 31.9 pg (28.0-32.0); MEAN CORPUSCULAR VOLUME 98.8 fL (80.0-94.0); MONOCYTES % 9.7 % (2.0-8.0); NEUTROPHILS % 62.2 % (40.0-76.0); PLATELET 172 x1000/uL (130-400); RED BLOOD CELL COUNT 3.79 mill/uL (4.7-6.1); RED CELL DISTRIBUTION WIDTH 17.3 % (11.6-14.6)
[2020-10-05 09:57] LABS: CHLORIDE 105 mEq/L (98-107)
[2020-10-05] MEDS ORDERED: METO2.5T14 MT (10:58)
[2020-10-05] MEDS ORDERED: POTA-79 MT (10:58)
[2020-10-05] MEDS ORDERED: FURO80TA87 MT (10:58)
[2020-10-05] MEDS ORDERED: COR12 PO (10:58)
[2020-10-05] MEDS ORDERED: LOSA50TA3 PO (10:58)
[2020-10-05 11:20] VITALS: BP 127/90
[2020-10-05 12:00] VITALS: BP 127/99
[2020-10-05] MEDS ORDERED: ENOXAPARIN 30MG/0.3ML SYR SUBCUT SCH (21:00)
== END 2020-10-05 14:05 | disposition home or self-care (01) | DRG 194 ==
LOC: EDUNIT# 23:53 → ER 23:53 → 6WST 10-04 07:06 → EDBEDREQ 10-04 07:10 → EDBEDREQTM 10-04 07:10 → ENRESERV 10-04 08:50 → ER 10-04 09:40
PROVIDERS: ADMIT Internal Medicine; ATTEND Internal Medicine
DX: I13.0 Hypertensive heart and chronic kidney disease with heart failure and stage 1 through stage 4 chronic kidney disease, or unspecified chronic kidney disease (principal); D64.9 Anemia, unspecified; E43 Unspecified severe protein-calorie malnutrition; J96.00 Acute respiratory failure, unspecified whether with hypoxia or hypercapnia; E87.8 Other disorders of electrolyte and fluid balance, not elsewhere classified; I25.10 Atherosclerotic heart disease of native coronary artery without angina pectoris; I34.0 Nonrheumatic mitral (valve) insufficiency; I42.0 Dilated cardiomyopathy; J44.9 Chronic obstructive pulmonary disease, unspecified; R74.01 Elevation of levels of liver transaminase levels; N18.9 Chronic kidney disease, unspecified; K21.9 Gastro-esophageal reflux disease without esophagitis; Z79.899 Other long term (current) drug therapy; I25.2 Old myocardial infarction; Z82.49 Family history of ischemic heart disease and other diseases of the circulatory system; Z91.19 Patient's noncompliance with other medical treatment and regimen; Z68.33 Body mass index [BMI] 33.0-33.9, adult; Z87.891 Personal history of nicotine dependence; I50.23 Acute on chronic systolic (congestive) heart failure; N17.0 Acute kidney failure with tubular necrosis
CPT/HCPCS: 36415; 71045; 80053; 80305; 81003; 83880; 84484; 85025; 93005; 99285; J1650; J1940; J2405

== ENCOUNTER 2020-12-03 12:49 | Inpatient (IN) | payer MEDICAID, OTHER ==
[~2020-12-03] VITALS: Ht 188 cm; Wt 98.0 kg
[~2020-12-03 12:49] MED LIST changes: -AMLO5TAB88 PO; +COR12 PO; +FURO80TA87 MT; -HYDR-4134 PO; -ISOS20TA57 PO; +LOSA50TA3 PO; +METO2.5T14 MT; -OMEP20TA2 PO; +POTA-79 MT; +POTA8CAP20 MT; -TOPUD
[2020-12-03] MEDS ORDERED: HYDROCODONE/ACETAMINOPHEN 5/325MG TABLET PO STA (15:26)
[2020-12-03 17:33] LABS: CLARITY URINE CLOUDY (CLEAR); COLOR URINE DARK YELLOW (YELLOW); KETONES URINE NEGATIVE (NEGATIVE); LEUKOCYTE ESTERASE URINE 1+ (NEGATIVE); NITRITE URINE POSITIVE (NEGATIVE); OCCULT BLOOD URINE 2+ (NEGATIVE); PH URINE 5.5 (4.5-8.0); PROTEIN URINE 4+ (NEGATIVE); SPECIFIC GRAVITY URINE 1.038 (1.005-1.030)
[2020-12-03 17:38] LABS: HEMATOCRIT. 40.5 % (42.0-52.0); HEMOGLOBIN. 12.8 g/dL (14.0-18.0); MEAN CORPUSCULAR HEMOGLOBIN 30.6 pg (28.0-32.0); MEAN PLATELET VOLUME 9.5 fl (7.4-10.4); PLATELET 164 x1000/uL (130-400); RED BLOOD CELL COUNT 4.18 mill/uL (4.7-6.1); RED CELL DISTRIBUTION WIDTH 21.7 % (11.6-14.6)
[2020-12-03 17:44] LABS: CHLORIDE 106 mEq/L (98-107)
[2020-12-03 18:19] LABS: PLATELET ESTIMATE NORMAL
[2020-12-03] MEDS ORDERED: ASPIRIN 81MG TABLET PO ONE (19:00)
[2020-12-03] MEDS ORDERED: FUROSEMIDE 40MG/4ML VIAL IV ONE (19:00)
[2020-12-03] MEDS ORDERED: CEFTRIAXONE 1 G PREMIX 50 ML IV ONE (19:00)
[2020-12-03] MEDS ORDERED: ASPIRIN 81MG TABLET PO NR (20:30)
[2020-12-03] MEDS ORDERED: HYDROCODONE/ACETAMINOPHEN 5/325MG TABLET PO NR (20:45)
[2020-12-03] MEDS ORDERED: CEFTRIAXONE 1 G PREMIX 50 ML IV NR (20:45)
[2020-12-03] MEDS: FUROSEMIDE 40MG/4ML VIAL IV NR (21:21)
[2020-12-03] MEDS: MORPHINE SULFATE 2 MG/ML CPJ (NOT FOR IM USE) IV PRN (23:21)
[2020-12-03] MEDS: ONDANSETRON HCL 4MG/2ML INJ IV PRN (23:22)
[2020-12-04] VITALS (7 sets, daily range): BP systolic 106–136; BP diastolic 64–100
[2020-12-04] MEDS: ONDANSETRON HCL 4MG/2ML INJ IV PRN (03:45)
[2020-12-04] MEDS: MORPHINE SULFATE 2 MG/ML CPJ (NOT FOR IM USE) IV PRN (03:45)
[2020-12-04] MEDS ORDERED: CEFTRIAXONE 1 G PREMIX 50 ML IV SCH (08:30)
[2020-12-04] MEDS: FUROSEMIDE 40MG/4ML VIAL IVP SCH ×2 (10:26→17:19)
[2020-12-04] MEDS: CARVEDILOL 12.5MG TABLET PO SCH ×2 (11:26→22:28)
[2020-12-04] MEDS: LOSARTAN POTASSIUM 25 MG TABLET PO SCH (11:26)
[2020-12-04] MEDS: ENOXAPARIN 40MG/0.4ML SYR SUBCUT SCH (12:35)
[2020-12-04] MEDS: FUROSEMIDE 40MG/4ML VIAL IV NR (22:27)
[2020-12-04] MEDS: KETOROLAC 30MG/ML VIAL IV PRN (22:28)
[2020-12-05] VITALS (8 sets, daily range): BP systolic 105–142; BP diastolic 65–84
[2020-12-05 09:37] LABS: BASOPHILS % 0.6 % (0.0-2.0); EOSINOPHILS % 1.7 % (0.0-5.0); HEMATOCRIT. 35.8 % (42.0-52.0); HEMOGLOBIN. 11.4 g/dL (14.0-18.0); MEAN CORPUSCULAR HEMOGLOBIN 30.7 pg (28.0-32.0); MEAN CORPUSCULAR VOLUME 96.3 fL (80.0-94.0); MEAN PLATELET VOLUME 10.1 fl (7.4-10.4); MONOCYTES % 13.4 % (2.0-8.0); NEUTROPHILS % 61.3 % (40.0-76.0); PLATELET 154 x1000/uL (130-400); RED BLOOD CELL COUNT 3.72 mill/uL (4.7-6.1); RED CELL DISTRIBUTION WIDTH 20.9 % (11.6-14.6)
[2020-12-05 09:49] LABS: CHLORIDE 108 mEq/L (98-107)
[2020-12-05] MEDS: FUROSEMIDE 40MG/4ML VIAL IVP SCH ×2 (09:50→18:02)
[2020-12-05] MEDS: LOSARTAN POTASSIUM 25 MG TABLET PO SCH (09:50)
[2020-12-05] MEDS: CARVEDILOL 12.5MG TABLET PO SCH ×2 (09:50→22:32)
[2020-12-05] MEDS: ENOXAPARIN 40MG/0.4ML SYR SUBCUT SCH (09:51)
[2020-12-05] MEDS: KETOROLAC 30MG/ML VIAL IV PRN (12:11)
[2020-12-05] MEDS: CEFTRIAXONE 1,000 MG in DEXTROSE 5% WATER 50 ML IV SCH (12:49)
[2020-12-05] MEDS ORDERED: METOLAZONE 2.5MG TABLET PO NR (16:00)
[2020-12-05] MEDS: FUROSEMIDE 40MG/4ML VIAL IV NR (21:44)
[2020-12-06] VITALS: BP 119/91
[2020-12-06 03:54] VITALS: BP 141/92
[2020-12-06 06:58] LABS: BASOPHILS % 0.7 % (0.0-2.0); EOSINOPHILS % 1.4 % (0.0-5.0); HEMATOCRIT. 35.1 % (42.0-52.0); HEMOGLOBIN. 11.4 g/dL (14.0-18.0); LYMPHOCYTES % 23.7 % (20.0-50.0); MEAN CORPUSCULAR HEMOGLOBIN 30.9 pg (28.0-32.0); MEAN CORPUSCULAR VOLUME 95.2 fL (80.0-94.0); MEAN PLATELET VOLUME 10.4 fl (7.4-10.4); MONOCYTES % 12.5 % (2.0-8.0); NEUTROPHILS % 61.7 % (40.0-76.0); PLATELET 141 x1000/uL (130-400); RED BLOOD CELL COUNT 3.69 mill/uL (4.7-6.1); RED CELL DISTRIBUTION WIDTH 21.5 % (11.6-14.6)
[2020-12-06 08:00] VITALS: BP 126/102
[2020-12-06] MEDS ORDERED: METOLAZONE 2.5MG TABLET PO SCH (09:00)
[2020-12-06] MEDS: FUROSEMIDE 40MG/4ML VIAL IVP SCH (09:03)
[2020-12-06] MEDS: LOSARTAN POTASSIUM 25 MG TABLET PO SCH (09:04)
[2020-12-06] MEDS: CARVEDILOL 12.5MG TABLET PO SCH (09:04)
[2020-12-06] MEDS: ENOXAPARIN 40MG/0.4ML SYR SUBCUT SCH (09:04)
[2020-12-06] MEDS: CEFTRIAXONE 1,000 MG in DEXTROSE 5% WATER 50 ML IV SCH (09:07)
[2020-12-06] MEDS ORDERED: MAGNESIUM 2 G PREMIX 50 ML IV NR (11:00)
[2020-12-06 11:42] VITALS: BP 129/90
[2020-12-06 12:00] VITALS: BP 130/84
[2020-12-06] MEDS ORDERED: FURO80TA87 MT (12:28)
[2020-12-06] MEDS ORDERED: LOSA50TA3 PO (12:28)
[2020-12-06] MEDS ORDERED: POTA-79 MT (12:28)
[2020-12-06] MEDS ORDERED: METO2.5T14 MT (12:28)
[2020-12-06] MEDS ORDERED: COR12 PO (12:28)
== END 2020-12-06 13:45 | disposition home or self-care (01) | DRG 720 ==
LOC: ER 12:49 → 3WST 20:24 → EDBEDREQTM 20:36 → EDBEDREQ 20:36 → ENRESERV 12-04 10:08
PROVIDERS: ADMIT Internal Medicine; ATTEND Internal Medicine
DX: A41.9 Sepsis, unspecified organism (principal); I50.23 Acute on chronic systolic (congestive) heart failure; I11.0 Hypertensive heart disease with heart failure; E43 Unspecified severe protein-calorie malnutrition; N39.0 Urinary tract infection, site not specified; F10.10 Alcohol abuse, uncomplicated; I42.6 Alcoholic cardiomyopathy; N17.9 Acute kidney failure, unspecified; I34.0 Nonrheumatic mitral (valve) insufficiency; J44.9 Chronic obstructive pulmonary disease, unspecified; R74.01 Elevation of levels of liver transaminase levels; Y90.9 Presence of alcohol in blood, level not specified; E83.42 Hypomagnesemia; Z87.891 Personal history of nicotine dependence; Z91.19 Patient's noncompliance with other medical treatment and regimen; Z79.84 Long term (current) use of oral hypoglycemic drugs; Z79.899 Other long term (current) drug therapy; Z68.27 Body mass index [BMI] 27.0-27.9, adult
CPT/HCPCS: 36415; 71045; 80048; 80053; 81003; 83735; 83880; 84484; 85025; 93005; 96374; 99291; J0696; J1650; J1885; J1940; J2270; J2405; J3475; J7040; J7060